=== PATIENT | male | born 1955 | race Caucasian/White ===

== ENCOUNTER 2020-05-10 10:23 | Inpatient (IN) ==
[2020-05-10] MEDS: 0.9 % Sodium Chloride 1,000 ML IVC SCH (11:07)
[2020-05-10] MEDS ORDERED: *HR* Heparin 10,000 UNIT/10 ML VIAL ONE (11:14)
[2020-05-10] MEDS ORDERED: ISOVUE-370 200 ML INFUS..BTL ONE (11:14)
[2020-05-10] MEDS ORDERED: Heparin 1,000 UNITS/500 mL 500 ML ONE (11:14)
[2020-05-10] MEDS ORDERED: Nitroglycerin 1,000 MCG/10 ML VIAL IV ONE (11:14)
[2020-05-10] MEDS ORDERED: 0.9 % Sodium Chloride 1,000 ML ONE (11:14)
[2020-05-10] MEDS ORDERED: *HR* FentaNYL (PF) 100 MCG/2 ML VIAL ONE (11:24)
[2020-05-10] MEDS ORDERED: *HR* Midazolam HCl 2 MG/2 ML VIAL ONE (11:24)
[2020-05-10] MEDS ORDERED: Tirofiban 12.5 MG/250ML 0 MG/0 ML BAG ONE (11:54)
[2020-05-10] MEDS ORDERED: *HR* Heparin 5,000 UNIT/ML VIAL IVP ONE (13:44)
[2020-05-10] MEDS ORDERED: Perflutren Lipid Microsphere 1.3 ML in 0.9 % Sodium Chloride 8.7 ML IVP PRN (13:44)
[2020-05-10] MEDS ORDERED: *HR* Heparin 5,000 UNIT/ML VIAL IVP PRN ×2 (13:44)
[2020-05-10] MEDS ORDERED: Heparin 25,000 UNIT/250 ML D5W 25,000 UNIT/250 ML IV.SOLN IVC SCH (13:45)
[2020-05-10] MEDS ORDERED: CeFAZolin Syr 2,000MG/20 ML 2,000 MG/20 ML SYRINGE IVPB ONE (13:45)
[2020-05-10 15:34] LABS: Hematocrit 42.4 % (37.5-50.1); Hemoglobin 13.4 g/dL (12.9-16.9); Mean Corpuscular HGB Conc 31.6 g/dL (31.6-35.5); Mean Corpuscular Hemoglobin 28.7 pg (28.0-33.3); Mean Corpuscular Volume 90.8 fL (83.0-100.0); Mean Platelet Volume 9.7 fL (9.4-12.4); Platelet Count 187 K/mcL (140-400); Red Blood Count 4.67 M/mcL (4.19-5.50); Red Cell Distribution Width 16.8 % (11.5-14.5); White Blood Count 4.5 K/mcL (4.3-11.1)
[2020-05-10 15:35] LABS: Basophils % 0.7 %; Eosinophils # 0.1 K/mcL (0.0-0.6); Eosinophils % 2.6 %; Hematocrit 42.3 % (37.5-50.1); Hemoglobin 13.4 g/dL (12.9-16.9); Immature Granulocytes % 0.4 % (0-4); Lymphocytes # 0.9 K/mcL (0.6-4.6); Lymphocytes % 19.6 %; Mean Corpuscular HGB Conc 31.7 g/dL (31.6-35.5); Mean Corpuscular Hemoglobin 28.6 pg (28.0-33.3); Mean Corpuscular Volume 90.4 fL (83.0-100.0); Mean Platelet Volume 9.9 fL (9.4-12.4); Monocytes # 0.6 K/mcL (0.0-1.3); Monocytes % 12.1 %; Neutrophils # 2.9 K/mcL (1.6-8.9); Platelet Count 189 K/mcL (140-400); Red Blood Count 4.68 M/mcL (4.19-5.50); Red Cell Distribution Width 16.7 % (11.5-14.5); Segmented Neutrophils % 64.6 %; White Blood Count 4.5 K/mcL (4.3-11.1)
[2020-05-10 15:44] LABS: Prothrombin Time 11.8 Seconds (9.4-12.1)
[2020-05-10 15:46] LABS: Prothrombin Time 11.3 Seconds (9.4-12.1)
[2020-05-10 15:47] LABS: Activated Partial Thrombo Time 21.8 Seconds (26.0-36.0); Heparin anti-factor XA UFH < 0.04 IU/mL (0.30-0.70)
[2020-05-10 15:53] LABS: BUN/Creatinine Ratio 15 (6-26); Blood Urea Nitrogen 17 mg/dL (8-23); Calcium 9.1 mg/dL (8.6-10.3); Carbon Dioxide 26 mEq/L (23-29); Chloride 103 mEq/L (98-107); Chol/HDL Ratio 4.3 (0-4.9); Cholesterol 141 mg/dL (< 200); Glucose 251 mg/dL (70-105); HDL Cholesterol 33 mg/dL (40-59); LDL Cholesterol,Calculated 38 mg/dL (< 100); Osmolality,Calculated 292 (280-300); Potassium 4.3 mEq/L (3.5-5.1); Sodium 136 mEq/L (136-145); Triglycerides 348 mg/dL (< 150); eGFR For African Americans > 60 (> 60); eGFR For Non-African Americans > 60 (> 60)
[2020-05-10 16:52] LABS: Estimated Average Glucose 177 mg/dl; Hemoglobin A1C 7.8 %
[2020-05-10] MEDS: Chlorhexidine Rinse 15 ML MOUTHWASH MM SCH (22:06)
[2020-05-11] MEDS: 0.9 % Sodium Chloride 1,000 ML IVC SCH ×2 (04:35→12:23)
[2020-05-11] MEDS ORDERED: Norepinephrine 4 MG in 0.9 % Sodium Chloride 250 ML IVC PRN (06:00)
[2020-05-11] MEDS ORDERED: Dextrose 50 % in Water (Vial) 30 ML, Sodium Bicarbonate 20 MEQ, Lidocaine 1% 5 ML, Insu... TH ONE ×3 (06:00)
[2020-05-11] MEDS ORDERED: Insulin Human Regular 100 UNIT in 0.9 % Sodium Chloride 100 ML IV PRN (06:00)
[2020-05-11] MEDS ORDERED: Heparin 15,000 UNIT in 0.9 % Sodium Chloride 500 ML IV ONE (06:00)
[2020-05-11] MEDS ORDERED: Dextrose 50 % in Water (Vial) 30 ML, Sodium Bicarbonate 20 MEQ, Potassium Chloride 15 M... TH ONE (06:00)
[2020-05-11] MEDS ORDERED: CeFAZolin Syr 2,000MG/20 ML 2,000 MG/20 ML SYRINGE IVPB ONE (06:45)
[2020-05-11] MEDS ORDERED: *HR* Midazolam HCl 5 MG/5 ML VIAL IVP ONE (06:51)
[2020-05-11] MEDS ORDERED: Dexamethasone 4 MG/ML VIAL ONE (06:52)
[2020-05-11] MEDS ORDERED: *HR* PHENYLEPHRINE 1,000 MCG/10 ML SYRINGE IVP ONE (06:52)
[2020-05-11] MEDS ORDERED: *HR* Rocuronium Bromide 50 MG/5 ML VIAL ONE ×3 (06:52→10:52)
[2020-05-11] MEDS ORDERED: *HR* Propofol 200 MG/20 ML VIAL IVP ONE (06:52)
[2020-05-11] MEDS ORDERED: *HR* FentaNYL (PF) 1,000 MCG/20 ML VIAL ONE (06:52)
[2020-05-11] MEDS ORDERED: Tranexamic Acid 1,000 MG/10 ML VIAL ONE (06:53)
[2020-05-11] MEDS ORDERED: Lidocaine 2% Syringe 100 MG/5 ML ONE (06:53)
[2020-05-11] MEDS ORDERED: Famotidine 20 MG/2 ML VIAL ONE (06:53)
[2020-05-11] MEDS ORDERED: *HR* Magnesium Sulfate 1 GM/2 ML VIAL ONE (06:53)
[2020-05-11 08:23] LABS: ABG Base Excess 1 mEq/L (-2 to 3); ABG Chloride 104 mEq/L (98-107); ABG Glucose 154 mg/dL (60-95); ABG HCO3 27 mEq/L (21-27); ABG Ionized Calcium 1.28 mmol/L (1.15-1.35); ABG Oxygen Saturation 99 % (95-98); ABG PCO2 51 mmHg (35-45); ABG PH 7.33 pH Units (7.32-7.45); ABG PO2 147 mmHg (85-104); ABG TCO2 29 mEq/L (20-26)
[2020-05-11] MEDS ORDERED: Vancomycin 1,500 MG/265 ML IV.SOLN IVPB ONE (09:00)
[2020-05-11 09:23] LABS: ABG Base Excess 0 mEq/L (-2 to 3); ABG Chloride 106 mEq/L (98-107); ABG Glucose 196 mg/dL (60-95); ABG HCO3 25 mEq/L (21-27); ABG Oxygen Saturation 99 % (95-98); ABG PCO2 42 mmHg (35-45); ABG PH 7.39 pH Units (7.32-7.45); ABG PO2 119 mmHg (85-104); ABG TCO2 26 mEq/L (20-26)
[2020-05-11] MEDS ORDERED: Amiodarone Premix 360 MG/200 ML BAG IVC ONE (09:30)
[2020-05-11] MEDS ORDERED: *HR* FentaNYL (PF) 250 MCG/5 ML VIAL ONE (09:36)
[2020-05-11] MEDS ORDERED: Calcium Gluconate 1,000 MG/10 ML VIAL ONE ×2 (10:15→10:16)
[2020-05-11] MEDS ORDERED: Protamine Sulfate 250 MG/25 ML VIAL IVP ONE (10:15)
[2020-05-11 10:21] LABS: ABG Base Excess 2 mEq/L (-2 to 3); ABG Chloride 102 mEq/L (98-107); ABG Glucose 223 mg/dL (60-95); ABG HCO3 26 mEq/L (21-27); ABG Ionized Calcium 1.09 mmol/L (1.15-1.35); ABG Oxygen Saturation 100 % (95-98); ABG PCO2 37 mmHg (35-45); ABG PH 7.45 pH Units (7.32-7.45); ABG PO2 578 mmHg (85-104); ABG TCO2 27 mEq/L (20-26)
[2020-05-11 10:59] LABS: ABG Base Excess -1 mEq/L (-2 to 3); ABG Chloride 104 mEq/L (98-107); ABG Glucose 193 mg/dL (60-95); ABG HCO3 24 mEq/L (21-27); ABG Ionized Calcium 1.23 mmol/L (1.15-1.35); ABG Oxygen Saturation 94 % (95-98); ABG PCO2 40 mmHg (35-45); ABG PH 7.39 pH Units (7.32-7.45); ABG PO2 71 mmHg (85-104); ABG TCO2 26 mEq/L (20-26)
[2020-05-11] MEDS ORDERED: Potassium Chloride 40 MEQ/200 ML BAG IVPB PRN (11:18)
[2020-05-11] MEDS ORDERED: Ondansetron 4 MG/2 ML VIAL IVP PRN (11:18)
[2020-05-11] MEDS ORDERED: *HR* Dextrose 50 % in Water (Vial) 50 ML VIAL IVP PRN (11:18)
[2020-05-11] MEDS ORDERED: Acetaminophen 325 MG TABLET PO PRN (11:18)
[2020-05-11] MEDS ORDERED: *HR* Promethazine 25 MG/ML VIAL IVP PRN (11:18)
[2020-05-11] MEDS: Amiodarone Premix 360 MG/200 ML BAG IVC ONE ×2 (11:25→15:57)
[2020-05-11] MEDS: Insulin Human Regular 100 UNIT in 0.9 % Sodium Chloride 100 ML IVC SCH ×2 (11:30→18:40)
[2020-05-11 11:50] LABS: ABG Base Excess 1 mEq/L (-2 to 3); ABG HCO3 26 mEq/L (21-27); ABG Oxygen Saturation 90 % (95-98); ABG PCO2 47 mmHg (35-45); ABG PH 7.36 pH Units (7.32-7.45); ABG PO2 62 mmHg (85-104); ABG TCO2 28 mEq/L (20-26); Blood Gas Modality ASSIST CONTROL; Blood Gas VT 600 cc
[2020-05-11] MEDS: niCARdipine 20 MG/200 ML MLS IVC SCH ×4 (11:55→23:16)
[2020-05-11 12:02] LABS: Basophils % 0.3 %; Eosinophils % 0.3 %; Hematocrit 35.4 % (37.5-50.1); Immature Granulocytes % 0.9 % (0-4); Lymphocytes # 0.4 K/mcL (0.6-4.6); Lymphocytes % 4.7 %; Mean Corpuscular HGB Conc 31.1 g/dL (31.6-35.5); Mean Corpuscular Hemoglobin 27.7 pg (28.0-33.3); Mean Corpuscular Volume 89.2 fL (83.0-100.0); Mean Platelet Volume 9.4 fL (9.4-12.4); Monocytes # 0.5 K/mcL (0.0-1.3); Monocytes % 5.6 %; Neutrophils # 8.3 K/mcL (1.6-8.9); Platelet Count 125 K/mcL (140-400); Red Blood Count 3.97 M/mcL (4.19-5.50); Red Cell Distribution Width 16.5 % (11.5-14.5); Segmented Neutrophils % 88.2 %; White Blood Count 9.4 K/mcL (4.3-11.1)
[2020-05-11 12:14] LABS: INR 1.2; Prothrombin Time 13.2 Seconds (9.4-12.1)
[2020-05-11 12:16] LABS: Activated Partial Thrombo Time 29.1 Seconds (26.0-36.0)
[2020-05-11 12:52] LABS: BUN/Creatinine Ratio 14 (6-26); Blood Urea Nitrogen 13 mg/dL (8-23); Calcium 7.8 mg/dL (8.6-10.3); Carbon Dioxide 26 mEq/L (23-29); Chloride 106 mEq/L (98-107); Glucose 167 mg/dL (70-105); Magnesium 2.8 mg/dL (1.6-2.6); Osmolality,Calculated 290 (280-300); Potassium 4.7 mEq/L (3.5-5.1); Sodium 138 mEq/L (136-145); eGFR For African Americans > 60 (> 60); eGFR For Non-African Americans > 60 (> 60)
[2020-05-11] MEDS: *HR* FentaNYL (PF) 100 MCG/2 ML VIAL IVP PRN ×2 (13:17→20:04)
[2020-05-11] MEDS: *HR* OxyCODONE/APAP 5/325 TABLET PO PRN ×2 (13:20→17:33)
[2020-05-11] MEDS: Insulin Regular, Human 100 UNIT/ML IV PRN ×4 (14:30→17:45)
[2020-05-11 15:07] LABS: ABG Base Excess -3 mEq/L (-2 to 3); ABG HCO3 22 mEq/L (21-27); ABG Oxygen Saturation 91 % (95-98); ABG PCO2 38 mmHg (35-45); ABG PH 7.36 pH Units (7.32-7.45); ABG PO2 62 mmHg (85-104); ABG TCO2 23 mEq/L (20-26); Blood Gas Modality CPAP/PS
[2020-05-11] MEDS: CeFAZolin 2 GM/120 ML BAG IVPB SCH ×2 (15:49→23:20)
[2020-05-11] MEDS: Norepinephrine 4 MG/254 ML IV.SOLN IVC SCH (16:36)
[2020-05-11] MEDS: Amiodarone Premix 360 MG/200 ML BAG IVC SCH (16:36)
[2020-05-11] MEDS ORDERED: *HR* Phenylephrine 10 MG/ML VIAL IVC ONE (16:41)
[2020-05-11] MEDS ORDERED: Albumin Human 25% 25 GM/100 ML IV.SOLN IVPB ONE (16:41)
[2020-05-11] MEDS ORDERED: *HR* Heparin 10,000 UNIT/10 ML VIAL IR ONE (16:41)
[2020-05-11] MEDS ORDERED: Tranexamic Acid 1,000 MG/10 ML VIAL IR ONE (16:41)
[2020-05-11] MEDS ORDERED: *HR* Magnesium Sulfate 2 GM/50 ML PIGGYBACK IVPB ONE (16:41)
[2020-05-11] MEDS ORDERED: Mannitol 25% vial 12.5 GM/50 ML VIAL IVPB ONE (16:41)
[2020-05-11] MEDS ORDERED: Lidocaine 2% Syringe 100 MG/5 ML IVP ONE (16:41)
[2020-05-11 17:02] LABS: ABG Base Excess -5 mEq/L (-2 to 3); ABG HCO3 22 mEq/L (21-27); ABG Oxygen Saturation 92 % (95-98); ABG PCO2 45 mmHg (35-45); ABG PO2 72 mmHg (85-104); ABG TCO2 23 mEq/L (20-26)
[2020-05-11] MEDS: Albumin Human 5% 12.5 GM/250 ML IV.SOLN IVPB PRN ×3 (17:11→18:44)
[2020-05-11] MEDS: Chlorhexidine Rinse 15 ML MOUTHWASH MM SCH (20:59)
[2020-05-11] MEDS ORDERED: Latanoprost 2.5 ML BOTTLE BOTH EYES SCH (21:00)
[2020-05-12] MEDS: *HR* OxyCODONE/APAP 5/325 TABLET PO PRN ×3 (00:04→20:05)
[2020-05-12] MEDS: niCARdipine 20 MG/200 ML MLS IVC SCH ×6 (02:19→13:37)
[2020-05-12] MEDS: Insulin Human Regular 100 UNIT in 0.9 % Sodium Chloride 100 ML IVC SCH (03:18)
[2020-05-12] MEDS: Amiodarone Premix 360 MG/200 ML BAG IVC SCH ×3 (03:39→15:56)
[2020-05-12] MEDS: 0.9 % Sodium Chloride 1,000 ML IVC SCH ×2 (03:40→05:43)
[2020-05-12 04:43] LABS: Basophils % 0.1 %; Hematocrit 31.3 % (37.5-50.1); Immature Granulocytes % 0.5 % (0-4); Lymphocytes # 0.3 K/mcL (0.6-4.6); Lymphocytes % 2.8 %; Mean Corpuscular HGB Conc 31.9 g/dL (31.6-35.5); Mean Corpuscular Hemoglobin 28.1 pg (28.0-33.3); Mean Corpuscular Volume 87.9 fL (83.0-100.0); Mean Platelet Volume 9.4 fL (9.4-12.4); Monocytes % 9.2 %; Neutrophils # 9.7 K/mcL (1.6-8.9); Platelet Count 144 K/mcL (140-400); Red Blood Count 3.56 M/mcL (4.19-5.50); Red Cell Distribution Width 16.6 % (11.5-14.5); Segmented Neutrophils % 87.4 %; White Blood Count 11.1 K/mcL (4.3-11.1)
[2020-05-12 04:47] LABS: INR 1.1; Prothrombin Time 12.8 Seconds (9.4-12.1)
[2020-05-12 05:00] LABS: BUN/Creatinine Ratio 21 (6-26); Blood Urea Nitrogen 20 mg/dL (8-23); Calcium 8.3 mg/dL (8.6-10.3); Carbon Dioxide 24 mEq/L (23-29); Chloride 108 mEq/L (98-107); Glucose 146 mg/dL (70-105); Osmolality,Calculated 295 (280-300); Potassium 3.8 mEq/L (3.5-5.1); Sodium 140 mEq/L (136-145); eGFR For African Americans > 60 (> 60); eGFR For Non-African Americans > 60 (> 60)
[2020-05-12] MEDS: *HR* FentaNYL (PF) 100 MCG/2 ML VIAL IVP PRN ×2 (05:41→08:00)
[2020-05-12] MEDS ORDERED: *HR* LORazepam 2 MG/ML VIAL ONE (07:24)
[2020-05-12] MEDS ORDERED: *HR* LORazepam 2 MG/ML VIAL IVP PRN (07:29)
[2020-05-12] MEDS ORDERED: QUEtiapine Fumarate 25 MG TABLET PO PRN (08:57)
[2020-05-12] MEDS ORDERED: lisinopriL 5 MG TABLET PO SCH (09:00)
[2020-05-12] MEDS ORDERED: Aspirin Enteric Coated 81 MG Tablet PO SCH (09:00)
[2020-05-12] MEDS ORDERED: Pregabalin 75 MG CAPSULE PO SCH (09:00)
[2020-05-12] MEDS ORDERED: Pantoprazole 40 MG VIAL IVP SCH (09:00)
[2020-05-12] MEDS ORDERED: allopurinoL 100 MG TABLET PO SCH (09:00)
[2020-05-12] MEDS ORDERED: Furosemide 40 MG TABLET PO SCH (09:00)
[2020-05-12] MEDS: Norepinephrine 4 MG/254 ML IV.SOLN IVC SCH (09:14)
[2020-05-12] MEDS ORDERED: D5% in Water 1,000 ML IVC PRN (09:49)
[2020-05-12] MEDS ORDERED: Dextrose Gel 15 GM/37.5 ML TUBE PO PRN ×2 (09:49)
[2020-05-12] MEDS ORDERED: *HR* Dextrose 50 % in Water (Vial) 50 ML VIAL IVP PRN (09:49)
[2020-05-12] MEDS ORDERED: *HR* Promethazine 25 MG/ML VIAL IVP PRN (09:49)
[2020-05-12] MEDS ORDERED: Ondansetron 4 MG/2 ML VIAL IVP PRN (09:49)
[2020-05-12] MEDS ORDERED: *HR* FentaNYL (PF) 100 MCG/2 ML VIAL IVP PRN (09:49)
[2020-05-12] MEDS: Chlorhexidine Rinse 15 ML MOUTHWASH MM SCH ×2 (09:55)
[2020-05-12] MEDS: Aspirin Enteric Coated 81 MG Tablet PO SCH (10:56)
[2020-05-12] MEDS: lisinopriL 5 MG TABLET PO SCH (10:56)
[2020-05-12] MEDS ORDERED: Insulin LISPRO 300 UNITS/3 ML VIAL SQ SCH ×2 (11:30→21:00)
[2020-05-12] MEDS: Insulin LISPRO 300 UNITS/3 ML VIAL SQ SCH ×2 (16:08→20:37)
[2020-05-12] MEDS ORDERED: Aminoglycoside Consult 1 EACH MC ONE (17:05)
[2020-05-12] MEDS: *HR* Heparin 5,000 UNIT/ML VIAL SQ SCH (18:28)
[2020-05-12] MEDS: *HR* LORazepam 2 MG/ML VIAL IVP PRN (18:28)
[2020-05-12] MEDS: QUEtiapine Fumarate 25 MG TABLET PO PRN (20:05)
[2020-05-12] MEDS: Acetaminophen 325 MG TABLET PO PRN (20:06)
[2020-05-12] MEDS: Pregabalin 75 MG CAPSULE PO SCH (20:07)
[2020-05-12] MEDS: Insulin DETEMIR 100 UNIT/ML X5UNITS SQ SCH (20:36)
[2020-05-12] MEDS: Latanoprost 2.5 ML BOTTLE BOTH EYES SCH (20:38)
[2020-05-12] MEDS ORDERED: Chlorhexidine Rinse 15 ML MOUTHWASH MM SCH (21:00)
[2020-05-13] MEDS ORDERED: Amiodarone Premix 150 MG/100 ML BAG IVPB ONE (03:43)
[2020-05-13 04:06] LABS: Eosinophils % 0.1 %; Hematocrit 32.9 % (37.5-50.1); Hemoglobin 10.3 g/dL (12.9-16.9); Immature Granulocytes % 0.4 % (0-4); Lymphocytes # 0.5 K/mcL (0.6-4.6); Lymphocytes % 6.8 %; Mean Corpuscular HGB Conc 31.3 g/dL (31.6-35.5); Mean Corpuscular Hemoglobin 28.2 pg (28.0-33.3); Mean Corpuscular Volume 90.1 fL (83.0-100.0); Monocytes # 0.9 K/mcL (0.0-1.3); Monocytes % 11.8 %; Neutrophils # 6.4 K/mcL (1.6-8.9); Platelet Count 143 K/mcL (140-400); Red Blood Count 3.65 M/mcL (4.19-5.50); Red Cell Distribution Width 17.2 % (11.5-14.5); Segmented Neutrophils % 80.9 %; White Blood Count 7.9 K/mcL (4.3-11.1)
[2020-05-13 04:25] LABS: BUN/Creatinine Ratio 24 (6-26); Blood Urea Nitrogen 21 mg/dL (8-23); Calcium 8.6 mg/dL (8.6-10.3); Carbon Dioxide 23 mEq/L (23-29); Chloride 107 mEq/L (98-107); Glucose 165 mg/dL (70-105); Osmolality,Calculated 293 (280-300); Potassium 4.3 mEq/L (3.5-5.1); Sodium 138 mEq/L (136-145); eGFR For African Americans > 60 (> 60); eGFR For Non-African Americans > 60 (> 60)
[2020-05-13] MEDS: Amiodarone Premix 360 MG/200 ML BAG IVC SCH ×2 (04:55→18:57)
[2020-05-13] MEDS: *HR* Heparin 5,000 UNIT/ML VIAL SQ SCH ×2 (04:56→16:32)
[2020-05-13] MEDS ORDERED: Pantoprazole 40 MG VIAL IVP SCH (09:00)
[2020-05-13] MEDS: Pregabalin 75 MG CAPSULE PO SCH ×2 (09:04→20:48)
[2020-05-13] MEDS: *HR* OxyCODONE/APAP 5/325 TABLET PO PRN ×2 (09:05→16:33)
[2020-05-13] MEDS: Aspirin Enteric Coated 81 MG Tablet PO SCH (09:05)
[2020-05-13] MEDS: Furosemide 40 MG TABLET PO SCH (09:05)
[2020-05-13] MEDS: lisinopriL 5 MG TABLET PO SCH (09:05)
[2020-05-13] MEDS: allopurinoL 100 MG TABLET PO SCH (09:06)
[2020-05-13] MEDS: Insulin LISPRO 300 UNITS/3 ML VIAL SQ SCH ×4 (09:06→20:49)
[2020-05-13] MEDS: TESTOSTERONE PUMP TP SCH (09:06)
[2020-05-13] MEDS: *HR* LORazepam 2 MG/ML VIAL IVP PRN (09:13)
[2020-05-13] MEDS: *HR* Amiodarone 200 MG TABLET PO SCH (18:57)
[2020-05-13] MEDS: Insulin DETEMIR 100 UNIT/ML X5UNITS SQ SCH (20:49)
[2020-05-13] MEDS: Latanoprost 2.5 ML BOTTLE BOTH EYES SCH (20:50)
[2020-05-14] MEDS ORDERED: *HR* Amiodarone 200 MG TABLET PO SCH
[2020-05-14] MEDS: *HR* OxyCODONE/APAP 5/325 TABLET PO PRN ×3 (00:23→15:30)
[2020-05-14] MEDS: Acetaminophen 325 MG TABLET PO PRN (00:23)
[2020-05-14] MEDS: *HR* Amiodarone 200 MG TABLET PO SCH ×3 (00:23→20:02)
[2020-05-14] MEDS: *HR* Heparin 5,000 UNIT/ML VIAL SQ SCH ×2 (05:00→17:05)
[2020-05-14 05:23] LABS: Basophils % 0.1 %; Eosinophils # 0.1 K/mcL (0.0-0.6); Eosinophils % 1.1 %; Hematocrit 34.5 % (37.5-50.1); Hemoglobin 10.5 g/dL (12.9-16.9); Immature Granulocytes % 0.6 % (0-4); Lymphocytes # 0.7 K/mcL (0.6-4.6); Lymphocytes % 9.6 %; Mean Corpuscular HGB Conc 30.4 g/dL (31.6-35.5); Mean Corpuscular Hemoglobin 27.3 pg (28.0-33.3); Mean Corpuscular Volume 89.6 fL (83.0-100.0); Monocytes # 0.9 K/mcL (0.0-1.3); Monocytes % 12.4 %; Neutrophils # 5.5 K/mcL (1.6-8.9); Platelet Count 160 K/mcL (140-400); Red Blood Count 3.85 M/mcL (4.19-5.50); Red Cell Distribution Width 17.1 % (11.5-14.5); Segmented Neutrophils % 76.2 %; White Blood Count 7.2 K/mcL (4.3-11.1)
[2020-05-14 05:41] LABS: BUN/Creatinine Ratio 20 (6-26); Blood Urea Nitrogen 16 mg/dL (8-23); Calcium 8.9 mg/dL (8.6-10.3); Carbon Dioxide 23 mEq/L (23-29); Chloride 106 mEq/L (98-107); Glucose 175 mg/dL (70-105); Osmolality,Calculated 291 (280-300); Potassium 4.1 mEq/L (3.5-5.1); Sodium 138 mEq/L (136-145); eGFR For African Americans > 60 (> 60); eGFR For Non-African Americans > 60 (> 60)
[2020-05-14] MEDS: Pregabalin 75 MG CAPSULE PO SCH ×2 (07:33→20:02)
[2020-05-14] MEDS: Furosemide 40 MG TABLET PO SCH (07:33)
[2020-05-14] MEDS: allopurinoL 100 MG TABLET PO SCH (07:33)
[2020-05-14] MEDS: Aspirin Enteric Coated 81 MG Tablet PO SCH (07:33)
[2020-05-14] MEDS: lisinopriL 5 MG TABLET PO SCH (07:34)
[2020-05-14] MEDS: TESTOSTERONE PUMP TP SCH (07:34)
[2020-05-14] MEDS: Insulin LISPRO 300 UNITS/3 ML VIAL SQ SCH ×4 (07:34→20:03)
[2020-05-14] MEDS: Latanoprost 2.5 ML BOTTLE BOTH EYES SCH (20:04)
[2020-05-14] MEDS: Insulin DETEMIR 100 UNIT/ML X5UNITS SQ SCH (20:05)
[2020-05-15] MEDS: Acetaminophen 325 MG TABLET PO PRN (04:00)
[2020-05-15] MEDS: *HR* Heparin 5,000 UNIT/ML VIAL SQ SCH ×2 (06:35→16:34)
[2020-05-15] MEDS: Furosemide 40 MG TABLET PO SCH (08:51)
[2020-05-15] MEDS: lisinopriL 5 MG TABLET PO SCH (08:51)
[2020-05-15 08:52] LABS: Basophils % 0.3 %; Eosinophils # 0.2 K/mcL (0.0-0.6); Eosinophils % 2.5 %; Hematocrit 34.9 % (37.5-50.1); Hemoglobin 11.1 g/dL (12.9-16.9); Immature Granulocytes % 0.5 % (0-4); Lymphocytes # 0.7 K/mcL (0.6-4.6); Lymphocytes % 10.8 %; Mean Corpuscular HGB Conc 31.8 g/dL (31.6-35.5); Mean Corpuscular Hemoglobin 28.8 pg (28.0-33.3); Mean Corpuscular Volume 90.4 fL (83.0-100.0); Mean Platelet Volume 10.2 fL (9.4-12.4); Monocytes # 0.8 K/mcL (0.0-1.3); Monocytes % 13.6 %; Neutrophils # 4.3 K/mcL (1.6-8.9); Platelet Count 186 K/mcL (140-400); Red Blood Count 3.86 M/mcL (4.19-5.50); Red Cell Distribution Width 16.5 % (11.5-14.5); Segmented Neutrophils % 72.3 %
[2020-05-15] MEDS: *HR* Amiodarone 200 MG TABLET PO SCH ×2 (08:52→21:42)
[2020-05-15] MEDS: Pregabalin 75 MG CAPSULE PO SCH ×2 (08:52→21:40)
[2020-05-15] MEDS: allopurinoL 100 MG TABLET PO SCH (08:52)
[2020-05-15] MEDS: Aspirin Enteric Coated 81 MG Tablet PO SCH (08:52)
[2020-05-15] MEDS: TESTOSTERONE PUMP TP SCH (08:53)
[2020-05-15] MEDS: Insulin LISPRO 300 UNITS/3 ML VIAL SQ SCH ×4 (08:54→21:43)
[2020-05-15 09:09] LABS: BUN/Creatinine Ratio 19 (6-26); Blood Urea Nitrogen 16 mg/dL (8-23); Calcium 9.1 mg/dL (8.6-10.3); Carbon Dioxide 25 mEq/L (23-29); Chloride 103 mEq/L (98-107); Glucose 214 mg/dL (70-105); Magnesium 1.7 mg/dL (1.6-2.6); Osmolality,Calculated 290 (280-300); Potassium 4.1 mEq/L (3.5-5.1); Sodium 136 mEq/L (136-145); eGFR For African Americans > 60 (> 60); eGFR For Non-African Americans > 60 (> 60)
[2020-05-15] MEDS: Insulin DETEMIR 100 UNIT/ML X5UNITS SQ SCH (21:42)
[2020-05-15] MEDS: Latanoprost 2.5 ML BOTTLE BOTH EYES SCH (21:44)
[2020-05-16] MEDS: QUEtiapine Fumarate 25 MG TABLET PO PRN (00:52)
[2020-05-16] MEDS: *HR* Heparin 5,000 UNIT/ML VIAL SQ SCH (06:19)
[2020-05-16] MEDS: lisinopriL 5 MG TABLET PO SCH (07:43)
[2020-05-16] MEDS: Insulin LISPRO 300 UNITS/3 ML VIAL SQ SCH ×4 (07:43→21:35)
[2020-05-16] MEDS: allopurinoL 100 MG TABLET PO SCH (07:44)
[2020-05-16] MEDS: Aspirin Enteric Coated 81 MG Tablet PO SCH (07:44)
[2020-05-16] MEDS: *HR* Amiodarone 200 MG TABLET PO SCH ×2 (07:44→21:29)
[2020-05-16] MEDS: Furosemide 40 MG TABLET PO SCH (07:44)
[2020-05-16] MEDS: TESTOSTERONE PUMP TP SCH (07:44)
[2020-05-16] MEDS: Pregabalin 75 MG CAPSULE PO SCH ×2 (07:44→21:29)
[2020-05-16] MEDS: Apixaban 5 MG TABLET PO SCH (21:28)
[2020-05-16] MEDS: Insulin DETEMIR 100 UNIT/ML X5UNITS SQ SCH (21:29)
[2020-05-16] MEDS: Latanoprost 2.5 ML BOTTLE BOTH EYES SCH (21:34)
[2020-05-17 07:01] VITALS: BP 93/64
[2020-05-17] MEDS: Aspirin Enteric Coated 81 MG Tablet PO SCH (07:35)
[2020-05-17] MEDS: allopurinoL 100 MG TABLET PO SCH (07:35)
[2020-05-17] MEDS: Pregabalin 75 MG CAPSULE PO SCH (07:35)
[2020-05-17] MEDS: Insulin LISPRO 300 UNITS/3 ML VIAL SQ SCH (07:35)
[2020-05-17] MEDS: *HR* Amiodarone 200 MG TABLET PO SCH (07:36)
[2020-05-17] MEDS: lisinopriL 5 MG TABLET PO SCH (07:36)
[2020-05-17] MEDS: TESTOSTERONE PUMP TP SCH (07:36)
[2020-05-17] MEDS: Furosemide 40 MG TABLET PO SCH (07:36)
[2020-05-17] MEDS: Apixaban 5 MG TABLET PO SCH (07:36)
== END 2020-05-17 10:55 | disposition home or self-care (01) | DRG 234 ==
LOC: INVDIALAB 10:23 → 2ANU 10:23 → ICNU 18:05 → 2NNU 05-12 17:13
PROVIDERS: ADMIT Thoracic Surgery (Cardiothoracic Vascular Surgery); ATTEND Thoracic Surgery (Cardiothoracic Vascular Surgery)